=== PATIENT | female | born 1995 | race Hispanic/Latino ===

== ENCOUNTER 2022-11-24 20:52 | Emergency (ER) | payer OTHER, SELFPAY ==
[2022-11-24 21:04] VITALS: BP 129/82; PULSE 109; RESP 18; TEMP 36.8; O2SAT 100; BMI 21.9
--- NOTE | 2022-11-24 23:48 | ED.SKABFB ---
HPI - Skin/Abscess/Foreign Bdy General Chief complaint: Skin/Abscess/Foreign Body Stated complaint: woke up with swollen face Time Seen by Provider: 11/24/22 23:47 Source: patient Mode of arrival: Ambulatory Limitations: no limitations History of Present Illness HPI narrative: Patient is a healthy 27-year-old female who presents with rash on her forehead. She reports that it just showed up this morning and that her eyes were swollen. She denies any fever or chills. She has obvious pick benton on both of her arms she reports that those are old and she reports that she did not pick her face. No fevers or chills. She did put ice on her forehead which seem to help mildly. He denies any illicit drug use. Related Data Previous Rx's Medication Instructions Recorded mupirocin 2 % topical ointment 1 applictn topical BID #15 grams 11/25/22 sulfamethoxazole 800 1 tab PO BID 7 days #14 tabs 11/25/22 mg-trimethoprim 160 mg tablet (Bactrim DS) Allergies Allergy/AdvReac Type Severity Reaction Status Date / Time azithromycin [From Zithromax] Allergy Hives Verified 11/24/22 21:08 Penicillins Allergy Hives Verified 11/24/22 21:08 Review of Systems Review of Systems ROS Unobtainable: All systems reviewed & are unremarkable except as noted in HPI and below Patient History Social History Smoking Status: Former smoker Smoking Status: Former smoker tobacco type: vaping alcohol intake frequency: 0-2 drinks per day Substance Use Type: marijuana Exam Initial Vital Signs Initial Vital Signs: Vital Signs Temperature 98.2 F 11/24/22 21:04 Pulse Rate 109 H 11/24/22 21:04 Respiratory Rate 18 11/24/22 21:04 Blood Pressure 129/82 11/24/22 21:04 Pulse Oximetry 100 11/24/22 21:04 Oxygen Delivery Method Room Air 11/24/22 21:04 GENERAL: Alert pleasant well-appearing 27-year-old and in no acute distress. HEENT: Head atraumatic,EOMI, pupils reactive, face symmetric, moist mucous membranes CARDIOVASCULAR: Regular rate and rhythm without murmurs, rubs or gallops. RESPIRATORY: Breath sounds equal bilaterally, no wheezes rales or rhonchi. EXTREMITIES: Normal range of motion, no clubbing or edema. Neurovascularly intact NEUROLOGICAL: Alert and oriented x4. SKIN: Multiple scarred pick benton on hands and arms. Face has fresh scabs in the center of her forehead with mild surrounding erythema. No significant swelling over orbital region she is able to open her eyes completely Course Orders Ordered: Discontinued Medications Ibuprofen (Ibuprofen 400 Mg Tablet) 800 mg PO NOW ONE Stop: 11/24/22 23:56 Last Admin: 11/25/22 00:03 Dose: 800 mg Documented By: MARCO Trimethoprim/Sulfamethoxazole (Trimeth/Sulfa 160/800 (Ds) Tablet) 1 tab PO NOW ONE Stop: 11/24/22 23:56 Last Admin: 11/25/22 00:04 Dose: 1 tab Documented By: MARCO Vital Signs Vital signs: Vital Signs - 8 hr 11/24/22 21:04 11/25/22 00:11 Temperature 98.2 F 97.6 F Pulse Rate 109 H 90 Respiratory Rate 18 16 Blood Pressure 129/82 122/74 Pulse Oximetry 100 97 Oxygen Delivery Method Room Air Room Air MDM - Skin/Abscess/Foreign Bdy MDM Narrative Medical decision making narrative: Patient is a 27-year-old female who presents with rash in the center of her forehead. I do not think that this showed up immediately this morning. This looks like it has been there for at least a couple of days. Possible shingles but it is in the center of her forehead and based on her arms and other pick benton I think that she probably picked forehead now has a mild cellulitis. She Is afebrile here, minimally tachycardic with normal blood pressure. Discharge Plan Departure Patient Disposition: Home Clinical Impression: Cellulitis Instructions: DI for Cellulitis -- Adult Activity Restrictions/Additional Instructions: *You have been diagnosed with cellulitis *What to do: At this time keep forehead clean and dry with soap and water. Expect to have some swelling over your eyes tomorrow. Use ice as needed 20-30 minutes at a time *Continue to take medications as directed Bactrim 1 tablet twice a day for 7 days Mupirocin ointment twice daily *Follow up with your primary care provider in 2-3 days or call [phone] *Return to ER if you should have [or] any new, worsening or concerning symptoms Prescriptions: New sulfamethoxazole-trimethoprim [Bactrim DS] 800-160 mg tablet 1 tab PO BID 7 Days Qty: 14 0RF mupirocin 2 % ointment 1 applictn TOP BID Qty: 15 0RF Stand Alone Forms: Patient Portal/API
[2022-11-25] MEDS: IBUPROFEN 400 MG TABLET 800 MG PO (00:03)
[2022-11-25] MEDS: TRIMETH/SULFA 160/800 (DS) TABLET 1 TAB PO (00:04)
[2022-11-25 00:11] VITALS: BP 122/74; PULSE 90; RESP 16; TEMP 36.4; O2SAT 97
== END 2022-11-25 00:10 | disposition home or self-care (01) ==
PROVIDERS: Emergency Provider Emergency Medicine
DX: L03.211 Cellulitis of face (principal)
CPT/HCPCS: 99283